=== PATIENT | female | born 1955 | race Caucasian/White ===

== ENCOUNTER → 2023-03-12 | Outpatient (CLI) | payer MEDICARE ==
--- NOTE | 2023-03-28 08:28 | MM ---
Reason for Exam: Screening (asymptomatic). Last mammogram was performed 1 year(s) and 2 month(s) ago. Patient History: Menarche at age 13. First Full-Term at age 28. Left ovary removed at age 62. Right ovary removed at age 62. Hysterectomy at age 62. Postmenopausal. Patient has history of breast feeding. Mother had ovarian cancer at or over age 50. Risk Values: Eliz 5 year model risk: 1.9%. NCI Lifetime model risk: 6.7%. Prior Study Comparison: 05/15/2019 Bilateral Screening Mammogram, [facility]. 11/24/2020 Bilateral Screening Mammogram, [facility]. 01/27/2022 Bilateral Screening Mammogram, [facility]. Tissue Density: The breast tissue is heterogeneously dense. This may lower the sensitivity of mammography. Findings: Analyzed By CAD. There is no suspicious group of microcalcifications or new suspicious mass. Benign-appearing calcifications bilaterally. Overall Assessment: Benign, BI-RAD 2 Management: Screening Mammogram of both breasts in [address] [facility] will attempt to contact patient to return for supplemental views and ultrasound if indicated. Patient should continue monthly self-breast exams. A clinical breast exam by your physician is recommended on an annual basis. This exam should not preclude additional follow-up of suspicious palpable abnormalities. Note on Eliz scores and lifetime risk: 1. A Eliz score greater than 3% is considered moderate risk. If this is the case, consider specialist referral to assess eligibility for a risk reducing agent. 2. If overall lifetime risk for the development of breast cancer is 20% or higher, the patient may qualify for future screening with alternating mammogram and breast MRI. Electronically signed and approved by: Trevor Hutchison DO
== END | disposition home or self-care (01) ==
LOC: RADMAMWWP 07:23
PROVIDERS: ATTEND Family Medicine
DX: Z12.31 Encounter for screening mammogram for malignant neoplasm of breast (principal); Z78.0 Asymptomatic menopausal state
CPT/HCPCS: 77063; 77067

== ENCOUNTER 2023-04-29 17:01 | Observation (INO) | payer MEDICARE ==
--- NOTE | 2023-04-29 17:51 | ED ---
Lower Extremity Injury HPI - General Chief Complaint: Extremity Injury, Lower Stated Complaint: Left ankle injury Time Seen by Provider: 04/29/23 17:03 Source: patient, RN notes reviewed, old records reviewed Mode of arrival: EMS Limitations: physical limitation - History of Present Illness Initial Comments: This is a 67-year-old female to the emergency department for evaluation. Patient presents to the ER for evaluation of severe left ankle pain. Patient has left ankle pain after falling while going up stairs. Patient is brought in by EMS who did placed patient in splint. Patient denies any other injuries regarding her complaints of pain. Patient has no medical history takes no medications no blood thinners. Follows mechanical in nature trip and fall MD Complaint: leg injury, ankle injury, other (left) -: days(s) Injury: Ankle: Left Type of Injury: inversion Place: home Severity: moderate Severity scale (1-10): 7 Improves With: nothing Worsens With: nothing Context: fall Associated Symptoms: swelling, tingling Treatments Prior to Arrival: splint - Related Data Home Medications Medication Instructions Recorded Confirmed Levothyroxine Sodium [Synthroid] 25 mcg PO DAILY 04/29/23 04/29/23 Previous Rx's Medication Instructions Recorded Acetaminophen Tab [Tylenol] 650 mg PO Q6H #1 tab 05/01/23 Aspirin 81 mg PO BID #60 tab 05/01/23 traMADol HCl [Ultram] 50 mg PO Q4H PRN #15 tab 05/01/23 Allergies Allergy/AdvReac Type Severity Reaction Status Date / Time No Known Allergies Allergy Verified 05/01/23 08:14 Review of Systems ROS Statement: Those systems with pertinent positive or pertinent negative responses have been documented in the HPI. ROS Other: All systems not noted in ROS Statement are negative. Past Medical History Past Medical History: Thyroid Disorder History of Any Multi-Drug Resistant Organisms: None Reported Past Surgical History: Hernia Repair, Hysterectomy Past Psychological History: No Psychological Hx Reported Smoking Status: Never smoker Past Alcohol Use History: None Reported Past Drug Use History: None Reported General Exam Limitations: physical limitation General appearance: alert, in no apparent distress Head exam: Present: atraumatic, normocephalic, normal inspection Eye exam: Present: normal appearance, PERRL, EOMI. Absent: scleral icterus, conjunctival injection, periorbital swelling ENT exam: Present: normal exam, mucous membranes moist Neck exam: Present: normal inspection. Absent: tenderness, meningismus, lymphadenopathy Respiratory exam: Present: normal lung sounds bilaterally. Absent: respiratory distress, wheezes, rales, rhonchi, stridor Cardiovascular Exam: Present: regular rate, normal rhythm, normal heart sounds. Absent: systolic murmur, diastolic murmur, rubs, gallop, clicks GI/Abdominal exam: Present: soft, normal bowel sounds. Absent: distended, tenderness, guarding, rebound, rigid Extremities exam: Present: normal inspection, tenderness, normal capillary refill, other (L ankle Does have significant deformity with external rotation and swelling, there is skin tenting). Absent: full ROM, pedal edema, joint swelling, calf tenderness Back exam: Present: normal inspection Neurological exam: Present: alert, oriented X3, CN II-XII intact Psychiatric exam: Present: normal affect, normal mood Skin exam: Present: warm, dry, intact, normal color. Absent: rash Course Vital Signs 04/29/23 04/29/23 17:03 19:03 Temperature 98.5 F Pulse Rate 91 88 Respiratory 16 18 Rate Blood Pressure 156/90 136/71 O2 Sat by Pulse 97 94 L Oximetry - Reevaluation(s) Reevaluation #1: 04/29/23 19:54 Medical record is reviewed Reevaluation #2: 04/29/23 19:55 patient's pain is improved Reevaluation #3: 04/29/23 19:55 patient symptoms are improved Reevaluation #4: Was pt. sent in by a medical professional or institution (, PA, INSIDE [employer] SAL[employer] CONSULTANT, urgent care, hospital, or custodial...) When possible be specific @ -no Did you speak to anyone other than the patient for history (EMS, parent, family, police, friend...)? What history was obtained from this source @ -no Did you review nursing and triage notes (agree or disagree)? Why? @ -agree Are old charts reviewed (outside hosp., previous admission, EMS record, old EKG, old radiological studies, urgent care reports/EKG's, custodial records)? Report findings @ -yes Differential Diagnosis (chest pain, altered mental status, abdominal pain women, abdominal pain men, vaginal bleeding, weakness, fever, dyspnea, syncope, headache, dizziness, GI bleed, back pain, seizure, CVA, palpatations, mental he alth, musculoskeletal)? @ -prior EKG interpreted by me (3pts min.). @ -yes X-rays interpreted by me (1pt min.). @ -yes CT interpreted by me (1pt min.). @ -no U/S interpreted by me (1pt. min.). @ -no What testing was considered but not performed or refused? (CT, X-rays, U/S, labs)? Why? @ -none What meds were considered but not given or refused? Why? @ -none Did you discuss the management of the patient with other professionals (professionals i.e. DrCierra, PA, [employer] SAL[employer] CONSULTANT, lab, RT, psych nurse, protective services social worker, chemic mangler, teacher, administrative services officer, case specialist)? Give summary @ -no Was smoking cessation discussed for >3mins.? @ -no Was critical care preformed (if so, how long)? @ -no Were there social determinants of health that impacted care today? How? (Homelessness, low income, unemployed, alcoholism, drug addiction, transportation, low edu. Level, literacy, decrease access to med. care, fpc, rehab)? @ -none Was there de-escalation of care discussed even if they declined (Discuss DNR or withdrawal of care, Hospice)? DNR status @ -no What co-morbidities impacted this encounter? (DM, HTN, Smoking, COPD, CAD, Cancer, CVA, ARF, Chemo, Hep., AIDS, mental health diagnosis, sleep apnea, morbi d obesity)? @ -none Was patient admitted / discharged? Hospital course, mention meds given and rout e, prescriptions, significant lab abnormalities, going to OR and other pertinent info. @ - 67 female to the emergency department for evaluation of fall fall with left ankle fracture, left trimalleolar fracture dislocation, ankle is reduced here in the emergency department, patient be admitted for orthopedic evaluation and management Trimalleolar ankle fracture Undiagnosed new problem with uncertain prognosis? @ -no Drug Therapy requiring intensive monitoring for toxicity (Heparin, Nitro, Insul in, Cardizem)? @ -no Were any procedures done? @ -Ankle fracture dislocation reduction, conscious sedation Diagnosis/symptom? @ -Left trimalleolar ankle fracture Acute, or Chronic, or Acute on Chronic? @ -Acute Uncomplicated (without systemic symptoms) or Complicated (systemic symptoms)? @ -Complicated Side effects of treatment? @ -no Exacerbation, Progression, or Severe Exacerbation? @ -exacerbation Poses a threat to life or bodily function? How? (Chest pain, USA, MT, pneumonia, PE, COPD, DKA, ARF, appy, cholecystitis, CVA, Diverticulitis, Homicidal, Suicidal, threat to staff... and all critical care pts) @ -yes - Consultations Consultation #1: Spoke with Dr. Young will admit this patient Procedures - Orthopedic Fracture Reduction Fracture #1 Consent Obtained: verbal consent Side: left Analgesia: procedural sedation Technique: direct manipulation, traction/counter-traction Post Reduction X-rays Demonstrate: acceptable reduction Post-Reduction Neuro Exam: intact Post-Reduction Vascular Exam: intact Splint Applied: Yes Patient Tolerated Procedure: well - Orthopedic Joint Reduction Joint #1 Side: left Joint Reduction Location: ankle Technique Used: traction/counter-traction Post-Reduction Neuro Exam: intact Post-Reduction Vascular Exam: intact Post Reduction X-Ray Obtained: Yes Post Reduction X-Ray Results: not reduced Splint Applied: Yes Patient Tolerated Procedure: well Medical Decision Making - Medical Decision Making 67 female to the emergency department for evaluation of fall fall with left ankle fracture, left trimalleolar fracture dislocation, ankle is reduced here in the emergency department, patient be admitted for orthopedic evaluation and management - Lab Data Result diagrams: 05/01/23 05:02 04/30/23 05:57 - EKG Data -: EKG Interpreted by Me (EKG is sinus 70 sent CO 158 QRS 66 QTc 406) - Radiology Data Radiology results: report reviewed (X-ray ankle left is positive for trimalleolar fracture with dislocation, x-ray left ankle improved placement of unstable ankle joint), image reviewed Disposition Clinical Impression: Ankle fracture, left, Fracture dislocation of left ankle, Trimalleolar fracture of ankle, closed Disposition: ADMITTED IP TO [facility] Condition: Stable Is patient prescribed a controlled substance at d/c from ED?: No Time of Disposition: 19:50
--- NOTE | 2023-04-29 18:16 | XR ---
EXAMINATION TYPE: XR ankle complete LT DATE OF EXAM: 04/29/2023 6:02 PM CLINICAL INDICATION:Female, 67 years old with history of fall; [facility] COMPARISON: None TECHNIQUE: XR ankle complete LT; ankle is imaged in frontal, lateral and oblique projections. FINDINGS: Fracture dislocation of the distal tibia and fibula with lateral dislocation of the foot. There is sh ortening present. The medial malleolus and distal fibula are completely displaced. IMPRESSION: Fracture dislocation of the distal left lower extremity tibia and fibula with associated soft tissue swelling.
[2023-04-29] MEDS ORDERED: HYDROmorphone 1 MG/ML 1 ML SYRINGE IVP STA (18:24)
[2023-04-29] MEDS ORDERED: SODIUM CHLORIDE 0.9% 500 ML 500 ML IV STA (18:25)
--- NOTE | 2023-04-29 18:46 | XR ---
EXAMINATION TYPE: XR ankle complete LT DATE OF EXAM: 04/29/2023 6:41 PM CLINICAL INDICATION:Female, 67 years old with history of POST REDUCTION; [facility] COMPARISON: Prereduction films TECHNIQUE: XR ankle complete LT; ankle is imaged in frontal, lateral and oblique projections. FINDINGS/IMPRESSION: Improved anatomic alignment with persistent fracture dislocation with complete displacement of the fr acture fragments. Splint material is in place.
[2023-04-29] MEDS ORDERED: HYDROmorphone 1 MG/ML 1 ML SYRINGE IVP PRN (19:48)
[2023-04-29] MEDS ORDERED: NALOXONE 0.4 MG/ML 1 ML VIAL IV PRN (19:48)
[2023-04-29] MEDS ORDERED: MORPHINE SULFATE 4 MG/ML SYRINGE IV STA (19:49)
[2023-04-29] MEDS: SODIUM CHLORIDE 0.9% 1,000 ML IV SCH (20:13)
[2023-04-29 20:28] LABS: Basophils % (A) 0 %; Eosinophils % (A) 1 %; HCT 42.7 % (34.0-46.0); HGB 14.7 gm/dL (11.4-16.0); Lymphocytes # (A) 1.7 k/uL (1.0-4.8); Lymphocytes % (A) 17 %; MCH 31.3 pg (25.0-35.0); MCHC 34.4 g/dL (31.0-37.0); MCV 91.1 fL (80.0-100.0); Mean Platelet Volume 8.2; Monocytes # (A) 0.4 k/uL (0-1.0); Monocytes % (A) 4 %; Neutrophils # (A) 7.7 k/uL (1.3-7.7); Neutrophils % (A) 77 %; Platelet Count 212 k/uL (150-450); RBC 4.69 m/uL (3.80-5.40); RDW 13.4 % (11.5-15.5); WBC 9.9 k/uL (3.8-10.6)
--- NOTE | 2023-04-29 20:32 | XR ---
EXAMINATION TYPE: XR chest 1V portable DATE OF EXAM: 04/29/2023 8:21 PM CLINICAL INDICATION:Female, 67 years old with history of pain; [facility] COMPARISON: None TECHNIQUE: XR chest 1V portable Frontal view of the chest. FINDINGS: Lungs/Pleura: There is no evidence of pleural effusion, focal consolidation, or pneumothorax. Pulmonary vascularity: Unremarkable. Heart/mediastinum: Cardiomediastinal silhouette is unremarkable. Musculoskeletal: No acute osseous pathology. IMPRESSION: No acute cardiopulmonary disease/process.
[2023-04-29 20:48] LABS: Partial Thromboplastin Time 23.3 sec (22.0-30.0)
[2023-04-29 21:48] LABS: ALT 34 U/L (4-34); AST 32 U/L (14-36); African American GFR (CKD) >90 (>60 ml/min/1.73 sqM); Albumin 3.9 g/dL (3.5-5.0); Albumin/Globulin Ratio 1.3; Alkaline Phosphatase 101 U/L (38-126); Anion Gap 9 mmol/L; Blood Urea Nitrogen 15 mg/dL (7-17); Calcium 8.7 mg/dL (8.4-10.2); Carbon Dioxide 21 mmol/L (22-30); Chloride 107 mmol/L (98-107); Globulin 2.9 g/dL; Glucose 135 mg/dL (74-99); Non-African American GFR(CKD) >90 (>60 ml/min/1.73 sqM); Phosphorus 3.3 mg/dL (2.5-4.5); Sodium 137 mmol/L (137-145); Total Bilirubin 0.5 mg/dL (0.2-1.3); Total Protein 6.8 g/dL (6.3-8.2)
[2023-04-29 21:55] LABS: NT-Pro-B-Type Natriuretic Pept <20 pg/mL
[2023-04-29] MEDS: ONDANSETRON 4 MG/2 ML VIAL IVP PRN (23:40)
[2023-04-30] MEDS ORDERED: KETOROLAC 15 MG/ML 1 ML VIAL IVP STA (05:07)
[2023-04-30] MEDS: SODIUM CHLORIDE 0.9% 1,000 ML IV SCH ×2 (08:38→21:43)
[2023-04-30 09:08] LABS: Basophils # (A) 0 X 10*3/uL (0.00-0.10); Basophils % (A) 0 %; Eosinophils # (A) 0.02 X 10*3/uL (0.04-0.35); Eosinophils % (A) 0.3 %; HCT 42.9 % (37.2-46.3); HGB 14.3 g/dL (12.0-15.0); Lymphocytes # (A) 1.76 X 10*3/uL (0.90-5.00); Lymphocytes % (A) 25.7 %; MCH 30.2 pg (27.0-32.0); MCHC 33.3 g/dL (32.0-37.0); MCV 90.7 FL (80.0-97.0); Mean Platelet Volume 9.9 FL (9.5-12.2); Monocytes # (A) 0.42 X 10*3/uL (0.20-1.00); Monocytes % (A) 6.1 %; NRBC Per 100 WBC 0 X 10*3/uL (0.00-0.01); Neutrophils # (A) 4.63 X 10*3/uL (1.80-7.70); Neutrophils % (A) 67.6 %; Platelet Count 241 X 10*3/uL (140-440); RBC 4.73 X 10*6/uL (4.10-5.20); RDW 13.4 % (11.5-14.5); WBC 6.85 X 10*3/uL (4.50-10.00)
--- NOTE | 2023-04-30 09:32 | P.HPOR ---
History of Present Illness H&P Date: 04/30/23 Chief Complaint: Left ankle fracture Shayy is a 67 y/o female with a past medical history including hypothyroidism, who presented to the emergency department yesterday via EMS after sustaining a fall at home. She had an obvious left ankle deformity and was splinted by EMS. X-rays were taken in the ER that revealed a displaced bimalleolar fracture of the left ankle. A new splint was applied and she was admitted to orthopedics for further evaluation and care. Shayy lives with her and does not usually use assistive devices. She denies any other injuries or hitting her head. Review of Systems Constitutional: Denies chills, Denies fatigue, Denies fever Cardiovascular: Denies chest pain, Denies shortness of breath Respiratory: Denies cough Gastrointestinal: Denies diarrhea, Denies nausea, Denies vomiting Musculoskeletal: left: ankle pain, ankle stiffness, ankle swelling Past Medical History Past Medical History: Thyroid Disorder History of Any Multi-Drug Resistant Organisms: None Reported Past Surgical History: Hernia Repair, Hysterectomy Past Anesthesia/Blood Transfusion Reactions: Unable to Obtain Past Psychological History: No Psychological Hx Reported Smoking Status: Never smoker Past Alcohol Use History: None Reported Past Drug Use History: None Reported Medications and Allergies Home Medications Medication Instructions Recorded Confirmed Type Aspirin EC [Ecotrin Low Dose] 81 mg PO HS 04/29/23 04/29/23 History Levothyroxine Sodium [Synthroid] 25 mcg PO DAILY 04/29/23 04/29/23 History Allergies Allergy/AdvReac Type Severity Reaction Status Date / Time codeine AdvReac Nausea & Verified 04/29/23 20:28 Vomiting Physical Examination The patient is a 67 y/o female in no acute distress. She is alert and oriented x3. Exam of the left lower extremity reveals a splint. She is able to wiggle her toes without difficulty. Neurological and circulatory status is intact. Results X-ray of the left ankle pre and post splint reveals a displaced bimalleolar fracture. - Labs Labs: Abnormal Lab Results - Last 24 Hours (Table) 04/29/23 04/30/23 Range/Units 21:27 05:57 Eosinophils # 0.02 L (0.04-0.35) X 10*3/uL Carbon Dioxide 21 L (22-30) mmol/L Glucose 135 H (74-99) mg/dL H & H 04/29/23 04/30/23 Range/Units 20:03 05:57 Hgb 14.7 14.3 (11.4-16.0) gm/dL Hct 42.7 42.9 (34.0-46.0) % Coagulation 04/29/23 Range/Units 20:03 INR 1.0 (<1.2) Result Diagrams: 04/30/23 05:57 04/30/23 05:57 Assessment and Plan (1) Bimalleolar avulsion fracture of left ankle Current Visit: Yes Status: Acute Code(s): S82.842A - DISPLACED BIMALLEOLAR FRACTURE OF LEFT LOWER LEG, INIT SNOMED Code(s): 033610262 (2) Fall Current Visit: Yes Status: Acute Code(s): W19.XXXA - UNSPECIFIED FALL, INITIAL ENCOUNTER SNOMED Code(s): 4568707 (3) Left ankle pain Current Visit: Yes Status: Acute Code(s): M25.572 - PAIN IN LEFT ANKLE AND JOINTS OF LEFT FOOT SNOMED Code(s): 870826863 Plan: The clinical and x-ray findings were discussed with the patient and her . The case was discussed at length with Dr. Young. Surgical intervention is needed and will take place later this afternoon. She will remain in the splint. Encouraged elevation and ice. She will undergo a left ankle ORIF today. She will remain NPO. Pain control as needed. A script for a knee scooter was given to the today. She will be nonweightbearing. The patient will likely be discharge home tomorrow with follow up in our office post op. We will continue to follow the patient closely.
[2023-04-30 09:36] LABS: ALT 33 U/L (8-44); AST 22 U/L (13-35); Albumin 3.9 g/dL (3.8-4.9); Alkaline Phosphatase 93 U/L (41-126); BUN/Creat Ratio 19.29 Ratio (12.00-20.00); Blood Urea Nitrogen 13.5 mg/dL (9.0-27.0); Calcium 8.7 mg/dL (8.7-10.3); Carbon Dioxide 22.3 mmol/L (21.6-31.8); Chloride 107 mmol/L (96-109); Globulin 2.3 g/dL (1.6-3.3); Glucose 100 mg/dL (70-110); Magnesium 2.1 mg/dL (1.5-2.4); Phosphorus 3.2 mg/dL (2.4-5.1); Potassium 4.1 mmol/L (3.5-5.5); Sodium 140 mmol/L (135-145); Total Bilirubin 0.4 mg/dL (0.3-1.2); Total Protein 6.2 g/dL (6.2-8.2)
--- NOTE | 2023-04-30 12:42 | P.CONS ---
History of Present Illness - Reason for Consult Consult date: 04/30/23 - History of Present Illness History of present illness; patient is 67-year-old lady with no significant past medical history was brought to the ER for left ankle pain. Patient stated she had a fall while walking up the stairs. No complaint of loss of consciousness. Denies any chest pain or shortness of breath. Denies any complaint of palpitation. No complain of weakness of any extremity. EMS was called and patient was placed in splint and brought to the ER Initial lab work done in the ER showed WBC 9.9, hemoglobin 14.7, platelet count 212, sodium 137, potassium 4, BUN 15, creatinine 0.62, glucose 135, calcium 8.7, total bilirubin 0.5, AST 32, ALT 34 troponin 0.023 EKG done in the ER showed heart rate of 77, no ST segment elevation, no T-wave inversion seen, normal sinus rhythm Chest x-ray done in the ER showed no acute cardiac process X-ray of ankle done showed fracture dislocation of the distal left lower extremity tibia and fibula with associated soft tissue swelling Patient admitted to orthopedic service, internal medicine team was consulted for medical management REVIEW OF SYSTEMS: CONSTITUTIONAL: No fever, no malaise, no fatigue. HEENT: No recent visual problems or hearing problems. Denied any sore throat. CARDIOVASCULAR: No chest pain, orthopnea, PND, no palpitations, no syncope. PULMONARY: No shortness of breath, no cough, no hemoptysis. GASTROINTESTINAL: No diarrhea, no nausea, no vomiting, no abdominal pain. NEUROLOGICAL: No headaches, no weakness, no numbness. HEMATOLOGICAL: Denies any bleeding or petechiae. GENITOURINARY: Denies any burning micturition, frequency, or urgency. MUSCULOSKELETAL/RHEUMATOLOGICAL: Left Ankle pain ENDOCRINE: Denies any polyuria or polydipsia. The rest of the 14-point review of systems is negative. PHYSICAL EXAMINATION: GENERAL: The patient is alert and oriented x3, not in any acute distress. Well developed, well nourished. HEENT: Pupils are round and equally reacting to light. EOMI. No scleral icterus. No conjunctival pallor. Normocephalic, atraumatic. No pharyngeal erythema. No thyromegaly. CARDIOVASCULAR: S1 and S2 present. No murmurs, rubs, or gallops. PULMONARY: Chest is clear to auscultation, no wheezing or crackles. ABDOMEN: Soft, nontender, nondistended, normoactive bowel sounds. No palpable organomegaly. MUSCULOSKELETAL: Left ankle splint seen EXTREMITIES: No cyanosis, clubbing, or pedal edema. NEUROLOGICAL: Gross neurological examination did not reveal any focal deficits. SKIN: No rashes. Assessment and plan Left ankle fracture Hypothyroidism Monitor vital signs Monitor CBC Monitor CMP Continue pain management per orthopedics Continue DVT prophylaxis per orthopedics Continue IV fluid Continue antiemetics Troponin and EKG reviewed. Patient is medically cleared for surgery with moderate risk of postoperative complications Labs and medication were reviewed.. Continue same treatment. Continue with symptomatic treatment. Resume home medication. Monitor labs and vitals. DVT and GI prophylaxis. Further recommendations as per clinical course of the patient Dictation was produced using [employer] dictation software. please excuse any grammatical, word or spelling errors. Past Medical History Past Medical History: Thyroid Disorder History of Any Multi-Drug Resistant Organisms: None Reported Past Surgical History: Hernia Repair, Hysterectomy Past Anesthesia/Blood Transfusion Reactions: Unable to Obtain Past Psychological History: No Psychological Hx Reported Smoking Status: Never smoker Past Alcohol Use History: None Reported Past Drug Use History: None Reported Medications and Allergies Home Medications Medication Instructions Recorded Confirmed Type Aspirin EC [Ecotrin Low Dose] 81 mg PO HS 04/29/23 04/29/23 History Levothyroxine Sodium [Synthroid] 25 mcg PO DAILY 04/29/23 04/29/23 History Allergies Allergy/AdvReac Type Severity Reaction Status Date / Time codeine AdvReac Nausea & Verified 04/29/23 20:28 Vomiting Physical Exam Vitals: Vital Signs Temp Pulse Pulse Resp BP BP Pulse Ox 04/30/23 07:51 98.0 F 86 16 117/74 95 04/30/23 01:51 98.6 F 71 132/84 96 04/29/23 21:10 98.5 F 86 16 141/84 94 L 04/29/23 20:59 74 19 139/81 92 L 04/29/23 19:03 88 18 136/71 94 L 04/29/23 17:03 98.5 F 91 16 156/90 97 Intake and Output 04/29/23 04/30/23 04/30/23 22:59 06:59 14:59 Output Total 1900 Balance -1900 Output: Urine 1900 Uretheral ([place]) 1000 Other: Voiding Method External Catheter Weight 99.79 kg Results CBC & Chem 7: 04/30/23 05:57 04/30/23 05:57 Labs: Abnormal Lab Results - Last 24 Hours (Table) 04/29/23 04/30/23 Range/Units 21:27 05:57 Eosinophils # 0.02 L (0.04-0.35) X 10*3/uL Carbon Dioxide 21 L (22-30) mmol/L Glucose 135 H (74-99) mg/dL
[2023-04-30 12:49] VITALS: BMI 35.5
[2023-04-30] MEDS: ONDANSETRON 4 MG/2 ML VIAL IVP PRN (15:43)
[2023-04-30] MEDS ORDERED: LACTATED RINGERS 1,000 ML IV ONE ×2 (15:44→20:06)
[2023-04-30] MEDS ORDERED: MIDAZOLAM 2 MG/2 ML VIAL IVP ONE (16:40)
[2023-04-30] MEDS ORDERED: fentaNYL (PF) 50 MCG/ML 2 ML AMP IVP ONE (16:44)
--- NOTE | 2023-04-30 17:28 | P.ANPRN ---
Procedure Note - Anesthesia - Nerve Block Performed Left Popliteal Single Time Out Performed: Yes (1640) Date of Procedure: 04/30/23 Procedure Start Time: 16:41 Procedure Stop Time: 16:46 Location of Patient: PreOp Indication: Acute Post-Operative Pain, Requested by Surgeon Specifically requested for management of pain by DrCierra: Kimmy Young Sedation Type: Sedate with meaningful contact maintained Preparation: Sterile Prep Position: Supine Catheter: None Needle Types: Pajunk Needle Gauge: 21 Ultrasound used to visualize needle placement: Yes Ultrasound used to observe medication spread: Yes Injectate: 0.5% Ropivacaine (see comment for volume) (15cc + 10cc nacl pf) Blood Aspirated: No Pain Paresthesia on Injection Noted: No Resistance on Injection: Normal Image Stored and Saved: Yes Events: Uneventful and Well Tolerated
--- NOTE | 2023-04-30 17:29 | P.ANPRN ---
Procedure Note - Anesthesia - Nerve Block Performed Left Adductor Canal Single Time Out Performed: Yes (1640) Date of Procedure: 04/30/23 Procedure Start Time: 16:47 Procedure Stop Time: 16:51 Location of Patient: PreOp Indication: Acute Post-Operative Pain, Requested by Surgeon Specifically requested for management of pain by DrCierra: Kimmy Young Sedation Type: Sedate with meaningful contact maintained Preparation: Sterile Prep Position: Supine Catheter: None Needle Types: Pajunk Needle Gauge: 21 Ultrasound used to visualize needle placement: Yes Ultrasound used to observe medication spread: Yes Injectate: 0.5% Ropivacaine (see comment for volume) (15cc + 10cc nacl pf) Blood Aspirated: No Pain Paresthesia on Injection Noted: No Resistance on Injection: Normal Image Stored and Saved: Yes Events: Uneventful and Well Tolerated
[2023-04-30] MEDS ORDERED: PROPOFOL 10 MG/ML 20 ML VIAL IV ONE (18:44)
[2023-04-30] MEDS ORDERED: ROPIVACAINE 5 MG/ML 30 ML VIAL ONE (18:44)
[2023-04-30] MEDS ORDERED: fentaNYL (PF) 50 MCG/ML 2 ML AMP ONE (18:44)
[2023-04-30] MEDS ORDERED: MIDAZOLAM 2 MG/2 ML VIAL ONE (18:44)
[2023-04-30] MEDS ORDERED: SUCCINYLCHOLINE CHLORIDE 200 MG/10 ML VIAL IV ONE (18:44)
[2023-04-30] MEDS ORDERED: SODIUM CHLORIDE 0.9% (PF) 10 ML VIAL ONE (18:44)
[2023-04-30] MEDS ORDERED: ePHEDrine 50 MG/ML 1 ML VIAL ONE (18:44)
[2023-04-30] MEDS ORDERED: HYDROmorphone (PF) 1 MG/ML ONE (18:44)
[2023-04-30] MEDS ORDERED: LIDOCAINE 1% INJ 10MG/ML (20 ML MDV) ONE (18:44)
[2023-04-30] MEDS ORDERED: SODIUM CHLORIDE 0.9% 50 ML with ceFAZolin 2,000 MG IV ONE ×2 (19:00)
[2023-04-30] MEDS ORDERED: HYDROcodone/APAP 5-325MG 1 EACH TAB PO PRN ×2 (19:13)
[2023-04-30] MEDS ORDERED: SENNOSIDES-DOCUSATE SODIUM 1 EACH TAB PO PRN (19:13)
--- NOTE | 2023-04-30 20:48 | XR ---
Intraoperative/procedural fluoroscopic services were provided. Total fluoroscopy time is 39.3 seconds with a total of 4 submitted images to PACS. Please see the operative/procedural note for further det ails. DAP: 0.4947 mGym2
[2023-04-30] MEDS: ASPIRIN 81 MG PO SCH (22:16)
[2023-05-01 07:30] VITALS: BP 148/76; PULSE 93; RESP 18; TEMP 99.8
[2023-05-01] MEDS: ASPIRIN 81 MG PO SCH (08:08)
[2023-05-01] MEDS: SODIUM CHLORIDE 0.9% 1,000 ML IV SCH (08:08)
[2023-05-01] MEDS ORDERED: ACETAMINOPHEN TAB 325 MG TAB PO PRN (08:13)
[2023-05-01] MEDS ORDERED: traMADol 50 MG TAB PO PRN (08:46)
[2023-05-01 08:51] LABS: HCT 38.5 % (37.2-46.3); HGB 12.6 g/dL (12.0-15.0); MCH 29.9 pg (27.0-32.0); MCHC 32.7 g/dL (32.0-37.0); MCV 91.4 FL (80.0-97.0); NRBC Per 100 WBC 0 X 10*3/uL (0.00-0.01); Platelet Count 216 X 10*3/uL (140-440); RBC 4.21 X 10*6/uL (4.10-5.20); RDW 13.4 % (11.5-14.5); WBC 7.29 X 10*3/uL (4.50-10.00)
[2023-05-01 08:52] LABS: Basophils # (A) 0.01 X 10*3/uL (0.00-0.10); Basophils % (A) 0.1 %; Eosinophils # (A) 0.07 X 10*3/uL (0.04-0.35); Lymphocytes # (A) 1.77 X 10*3/uL (0.90-5.00); Lymphocytes % (A) 24.3 %; Monocytes # (A) 0.45 X 10*3/uL (0.20-1.00); Monocytes % (A) 6.2 %; Neutrophils # (A) 4.97 X 10*3/uL (1.80-7.70); Neutrophils % (A) 68.1 %
--- NOTE | 2023-05-01 08:52 | P.DS ---
Providers Date of admission: 04/29/23 19:48 Expected date of discharge: 05/01/23 Attending physician: Kimmy Young DO Consults: 04/30/23 08:55 Consult Physician Stat Consulting Provider: Michael Perdomo Consult Reason/Comments: surgical clearance, medical management Do you want consulting provider notified?: Yes Primary care physician: Kanika Vega - Discharge Diagnosis(es) (1) Bimalleolar avulsion fracture of left ankle Current Visit: Yes Status: Acute (2) Fall Current Visit: Yes Status: Acute (3) Left ankle pain Current Visit: Yes Status: Acute Hospital Course: This is a 67-year-old female who presented to the ER at [facility] on 04/29/2023 with complaints of a fall and left ankle pain. She was found to have a bimalleolar fracture. After discussion and consideration, the patient elected to proceed with an ORIF of the left ankle. Patient was seen preoperatively, and medically cleared for surgery by her primary care physician. Patient was admitted to [facility] underwent an ORIF of the left bimalleolar fracture on 04/30/[address] Kimmy Young. The procedure was performed without complications or sequelae. The patient is seen and evaluated at bedside today. Pain is well-controlled. Patient has no new complaints today and denies any fevers, chills, nausea, vomiting, or shortness of breath. Vital signs are stable. Dressing and splint are clean dry and intact. She is able to wiggle her toes without difficulty. Patient's left lower extremity is neurovascularly intact. The patient is orthopedically stable for discharge today. Pertinent Studies: Laboratory Tests 05/01/23 05:02 WBC 7.29 RBC 4.21 Hgb 12.6 Hct 38.5 Patient Condition at Discharge: Stable Plan - Discharge Summary Discharge Rx Participant: No New Discharge Prescriptions: New traMADol HCl [Ultram] 50 mg PO Q4H PRN #15 tab PRN Reason: Pain Aspirin 81 mg PO BID #60 tab Acetaminophen Tab [Tylenol] 650 mg PO Q6H #1 tab Continue Levothyroxine Sodium [Synthroid] 25 mcg PO DAILY Discontinued Aspirin EC [Ecotrin Low Dose] 81 mg PO HS Discharge Medication List Levothyroxine Sodium [Synthroid] 25 mcg PO DAILY 04/29/23 [History] Acetaminophen Tab [Tylenol] 650 mg PO Q6H #1 tab 05/01/23 [Rx] Aspirin 81 mg PO BID #60 tab 05/01/23 [Rx] traMADol HCl [Ultram] 50 mg PO Q4H PRN #15 tab 05/01/23 [Rx] Follow up Appointment(s)/Referral(s): Sharonda Mckeon, RAHUL [Nurse Practitioner] - 10 Days (10-14 days) Kanika Vega DO [Primary Care Provider] - 1-2 days Activity/Diet/Wound Care/Special Instructions: Keep splint and dressing on until follow up Cover splint while bathing. Keep dry. Elevate and ice left ankle Nonweightbearing to the left ankle. Follow up in the office in 10-14 days. Call [facility] with any questions or concerns, . Discharge Disposition: HOME SELF-CARE
--- NOTE | 2023-05-01 12:22 | P.PN ---
Subjective Progress Note Date: 05/01/23 patient is 67-year-old lady with no significant past medical history was brought to the ER for left ankle pain. Patient stated she had a fall while walking up the stairs. No complaint of loss of consciousness. Denies any chest pain or shortness of breath. Denies any complaint of palpitation. No complain of weakness of any extremity. EMS was called and patient was placed in splint and brought to the ER Initial lab work done in the ER showed WBC 9.9, hemoglobin 14.7, platelet count 212, sodium 137, potassium 4, BUN 15, creatinine 0.62, glucose 135, calcium 8.7, total bilirubin 0.5, AST 32, ALT 34 troponin 0.023 EKG done in the ER showed heart rate of 77, no ST segment elevation, no T-wave inversion seen, normal sinus rhythm Chest x-ray done in the ER showed no acute cardiac process X-ray of ankle done showed fracture dislocation of the distal left lower extremity tibia and fibula with associated soft tissue swelling Patient admitted to orthopedic service, internal medicine team was consulted for medical management 05/01. Patient seen and examined. No acute issues overnight. Patient keen to go home. Sanon was discontinued. REVIEW OF SYSTEMS: CONSTITUTIONAL: No fever, no malaise,. CARDIOVASCULAR: No chest pain, no palpitations, no syncope. PULMONARY: No shortness of breath, no cough, GASTROINTESTINAL: No diarrhea, no nausea, no vomiting, no abdominal pain. NEUROLOGICAL: No headaches, no weakness, PHYSICAL EXAMINATION: GENERAL: The patient is alert and oriented x3, not in any acute distress. Well developed, well nourished. HEENT: Pupils are round and equally reacting to light. EOMI. No scleral icterus. No conjunctival pallor. Normocephalic, atraumatic. No pharyngeal erythema. No thyromegaly. CARDIOVASCULAR: S1 and S2 present. No murmurs, rubs, or gallops. PULMONARY: Chest is clear to auscultation, no wheezing or crackles. ABDOMEN: Soft, nontender, nondistended, normoactive bowel sounds. No palpable or ganomegaly. MUSCULOSKELETAL: Left foot cast seen EXTREMITIES: No cyanosis, clubbing, or pedal edema. NEUROLOGICAL: Gross neurological examination did not reveal any focal deficits. SKIN: No rashes. Assessment and plan Left ankle fracture Hypothyroidism Monitor vital signs Monitor CBC Monitor CMP Status post ORIF of the left ankle Continue pain management per orthopedics Continue DVT prophylaxis per orthopedics In regards to hypothyroid continue Synthyroid Labs and medication were reviewed.. Continue same treatment. Continue with symptomatic treatment. Resume home medication. Monitor labs and vitals. DVT and GI prophylaxis. Further recommendations as per clinical course of the patient Dictation was produced using [employer] Chinese dictation software. please excuse any grammatical, word or spelling errors. Objective - Vital Signs Vital signs: Vital Signs Temp 99.8 F H 05/01/23 07:12 Pulse 93 05/01/23 07:12 Resp 18 05/01/23 07:12 BP 148/76 05/01/23 07:12 Pulse Ox 94 L 05/01/23 07:12 FiO2 Intake & Output 04/30/23 05/01/23 05/01/23 18:59 06:59 18:59 Intake Total 900 1750 Output Total 500 570 968 Balance 400 1180 -968 Weight 99.79 kg Intake: IV 300 1750 Intake, IV Titration 600 Amount Sodium Chloride 0.9% 1, 600 000 ml @ 75 mls/hr IV . [id number] MISAEL Rx#:[id number] Output: Urine 500 550 900 Post Void Residual 68 Estimated Blood Loss 20 Other: Voiding Method Indwelling Catheter Indwelling Catheter - Labs CBC & Chem 7: 05/01/23 05:02 04/30/23 05:57
--- NOTE | 2023-05-06 14:25 | P.OP ---
Date of Procedure: 04/30/23 Preoperative Diagnosis: Left ankle bimalleolar fracture Postoperative Diagnosis: same Procedure(s) Performed: Left ankle open reduction internal fixation, bimalleolar fixation Implants: Hilda distal fibula plate, 2.7 lag screw, 4.0 cannulated screw Anesthesia: NICANOR, [facility] Surgeon: Kimmy Young Estimated Blood Loss (ml): 20 Pathology: none sent Condition: stable Disposition: PACU Indications for Procedure: Patient fell sustaining a bimalleolar fracture dislocation. Attempt at reduction in the ER was unsuccessful. Patient was admitted for reduction and fixation. Soft tissue was ammenable to internal fixation. Operative Findings: medial and lateral malleoli displaced fractures. Easily reducible tibiotalar joint. Description of Procedure: The patient, operative extremity, and procedure were identified in the preop holding area. After informed consent was obtained, the patient received a regional block and was brought back to the OR. The lower extremtiy was prepped an draped in normal sterile fashion with a bump under the left hip and a bone foam under the lower leg. After a formal time out was performed, tourniquet was inflated. We started on the lateral side. A longitudinal incision was made just posterior to the midline of the fibula. Dissection was carried down to the periosteum with care taken to protect the cutenous nerve proximally. Bovie was used to incise the periosteum. The fracture was identified, cleaned and reduced with a lobster claw. 2.7 lag screw was inserted perpendicular to the fracture. This compressed and held the reduction. The clamp was removed and a distal fibular plate was affixed as a neutralization plate. Attention was then turned to the medial side. A longitudinal incision was made over the shoulder of the medial tibiotalar joint. The fracture was identified and the interposed tissue was removed. The medial malleolus fracture was then reduced and held with a point to point clamp. A guide wire was inserted from the tip of the malleolus proximally into the tibia. This was overdrilled and a 46mmx4.0 cannulaed screw was inserted. There was good compression across the fracture site. Final views should good alignment of the fracture fragments, congruent tibiotalar joint, and good platement of the hardware. tourniquet was let down, hemostasis achieved, and the wounds were closed with 0 vycril, 3.0 vycril, and 3.0 nylon. Woudn was dressed with adaptic, gauze, and webril. The ankle was placed in a well padded AO splint with the ankle in neutral dorsiflexion.
== END 2023-05-01 13:15 | disposition home or self-care (01) ==
LOC: EC 17:01 → INTOOBSV 19:48 → 4SSUR 19:48 → UNDODISIN 05-01 13:15
PROVIDERS: ADMIT Orthopaedic Surgery Hand Surgery; ATTEND Orthopaedic Surgery Hand Surgery
DX: S82.842A Displaced bimalleolar fracture of left lower leg, initial encounter for closed fracture (principal); E03.9 Hypothyroidism, unspecified; Z88.5 Allergy status to narcotic agent; Z79.890 Hormone replacement therapy; Z79.82 Long term (current) use of aspirin; Z90.710 Acquired absence of both cervix and uterus; Z98.890 Other specified postprocedural states; Y92.009 Unspecified place in unspecified non-institutional (private) residence as the place of occurrence of the external cause; W10.9XXA Fall (on) (from) unspecified stairs and steps, initial encounter
CPT/HCPCS: 27814; 96376; 96375 ×2; 96361; 96374; 99285; 27818; 93005; 97161; 64447; 64445; 83880; 80053 ×2; 83735 ×2; 84100 ×2; 84484; 85025 ×3; 85610; 85730; 73600; 73610; 71045; G0378 ×3; C1713; J2250; J0330; J0690 ×2; J2405 ×2; J2001; J3010; J1170 ×2; J2795; J1885; J2704

== ENCOUNTER → 2024-03-25 | Outpatient (CLI) | payer MEDICARE ==
--- NOTE | 2024-03-25 12:51 | MM ---
Reason for Exam: Screening (asymptomatic). Last screening mammogram was performed 12 month(s) ago. Patient History: Menarche at age 13. First Full-Term at age 28. Left ovary removed at age 62. Right ovary removed at age 62. Hysterectomy at age 62. Postmenopausal. Patient has history of breast feeding. Mother had ovarian cancer at or over age 50. Risk Values: Eliz 5 year model risk: 1.9%. NCI Lifetime model risk: 6.4%. Prior Study Comparison: 11/24/2020 Bilateral Screening Mammogram, [facility]. 01/27/2022 Bilateral Screening Mammogram, [facility]. 03/12/2023 Bilateral MG 3D screening mammo w/cad, [facility]. Tissue Density: There are scattered areas of fibroglandular density. Findings: Analyzed By CAD. Right breast: There is no suspicious group of microcalcifications or new suspicious mass. Left breast: There is no suspicious group of microcalcifications or new suspicious mass. Benign-appearing calcifications left breast. Overall Assessment: Benign, BI-RAD 2 Management: Screening Mammogram of both breasts in [address] [facility] will attempt to contact patient to return for supplemental views and ultrasound if indicated. Patient should continue monthly self-breast exams. A clinical breast exam by your physician is recommended on an annual basis. This exam should not preclude additional follow-up of suspicious palpable abnormalities. Note on Eliz scores and lifetime risk: 1. A Eliz score greater than 3% is considered moderate risk. If this is the case, consider specialist referral to assess eligibility for a risk reducing agent. 2. If overall lifetime risk for the development of breast cancer is 20% or higher, the patient may qualify for future screening with alternating mammogram and breast MRI. [facility], , 03/25/2024 12:42 PM. Electronically signed and approved by: Trevor Hutchison DO
== END | disposition home or self-care (01) ==
LOC: RADMAMWWP 06:51
PROVIDERS: ATTEND Family Medicine
DX: Z12.31 Encounter for screening mammogram for malignant neoplasm of breast
CPT/HCPCS: 77063; 77067